=== PATIENT | female | born 1980 | race Caucasian/White ===

== ENCOUNTER 2018-06-10 14:04 | Outpatient (CLI) | payer BC, SELFPAY ==
[2018-06-10 14:38] LABS: Abs Immature Grans 0.05 k/cumm (0.0-0.09); Absolute Basophil Count 0.06 k/cumm (0.0-0.2); Absolute Lymphocyte Count 2.54 k/cumm (1.2-3.4); Absolute Monocyte Count 0.71 k/cumm (0.11-0.7); Basophils % 0.5; Eosinophils % 0.8; HGB 11.2 g/dL (12.0-15.5); Immature Grans % 0.4; Lymphocytes % 21.4; Mean Corp. HGB Concentration 32.9 g/dL (32.0-36.0); Mean Corpuscular Hemoglobin 27.7 pg (27.0-33.0); Mean Platelet Volume 8.8 fL (8.0-11.0); Neutrophils % 70.9; Platelet Count 344 x1000/uL (130-400); RBC 4.05 m/cumm (4.00-5.20); RBC Distribution Width 12.7 % (11.7-14.6); White Blood Cell Count 11.88 k/cumm (4.4-10.8)
[2018-06-10 14:42] LABS: Absolute Neutrophil Count 8.42 k/cumm (1.2-6.7)
[2018-06-10 15:32] LABS: TSH (W/Ref FT4) 3.53 uIU/mL (0.358-3.74)
[2018-06-11 10:40] LABS: Prolactin 10.1 ng/ml
== END 2018-06-10 14:24 ==
PROVIDERS: PCP Neuromusculoskeletal Medicine & OMM; Visit Provider Obstetrics & Gynecology
DX: N92.0 Excessive and frequent menstruation with regular cycle (principal)
CPT/HCPCS: 36415; 84146; 84443; 85025

== ENCOUNTER 2018-06-10 14:11 | Outpatient (REF) | payer BC, SELFPAY ==
--- NOTE | 2018-06-10 14:00 | PAPFT_PTH ---
PATIENT: CLAUDIA MCINTOSH LOC: [facility] U#:[id number] AGE/SX: 37/F ROOM: RE06/10/[address]: Magdalena Singleton MD : 1980 BED: DIS: 06/10/2018 SPEC #: [id number] RECD: 06/10/18 17:59 STATUS: KRISTINE REQ #: [id number] LOU: 06/10/18 14:[address]: Magdalena Singleton DEPT: [facility] Cytology RECD BY: Paty Orr ENTERED: 06/10/18 18:00 SP TYPE: PAPFT DUSTY DR: Cecil Rapp Tissues: 1 - CX/ENDOCX FOR PAP SMEARS Procedures: PAP THIN PREP/UVM Screening HPV DNA PROBE Comments: [id number]
== END 2018-06-10 14:31 ==
LOC: LBN 14:11
PROVIDERS: PCP Neuromusculoskeletal Medicine & OMM; Visit Provider Obstetrics & Gynecology
DX: Z12.4 Encounter for screening for malignant neoplasm of cervix (principal); Z11.51 Encounter for screening for human papillomavirus (HPV)
CPT/HCPCS: 88142; 87624

== ENCOUNTER 2018-06-19 00:09 | Outpatient (CLI) | payer BC, SELFPAY ==
--- NOTE | 2018-06-19 14:02 | DI.RAD_ITS ---
SYMPTOMS/DIAGNOSIS: MENORRHAGIA, N92.0 PELVIC ULTRASOUND: Pelvic ultrasound was performed transabdominally and transvaginally. Please see accompanying data sheet for measurements of the pelvic structures. There are a few Nabothian cysts of the cervix. The uterus is otherwise unremarkable in appearance with a 5 mm thick homogeneous endometrial stripe. The ovaries have a normal follicular appearance. No free fluid identified in the cul-de-sac. Limited scanning of the kidneys is unremarkable. CONCLUSION: Negative pelvic ultrasound.
== END 2018-06-19 00:29 ==
PROVIDERS: PCP Neuromusculoskeletal Medicine & OMM; Visit Provider Obstetrics & Gynecology
DX: N92.0 Excessive and frequent menstruation with regular cycle (principal)
CPT/HCPCS: 76830; 76856

== ENCOUNTER 2018-06-26 15:57 | Outpatient (REF) | payer BC, SELFPAY ==
--- NOTE | 2018-06-26 15:45 | ENDOMET_PTH ---
PATIENT: CLAUDIA MCINTOSH LOC: [facility] U#:[id number] AGE/SX: 37/F ROOM: RE06/26/[address]: Magdalena Singleton MD : 1980 BED: DIS: 06/26/2018 SPEC #: [id number] RECD: 06/26/18 17:50 STATUS: KRISTINE REQ #: [id number] LOU: 06/26/18 15:[address]: Magdalena Singleton DEPT: Surgical Specimen RECD BY: Paty Orr ENTERED: 06/26/18 17:51 SP TYPE: Endomet OTHR DR: Cecil Rapp Tissues: 1 - ENDOMETRIUM BX/LAUREL Procedures: GROSS AND MICRO LEVEL 4 Comments: [id number]
== END 2018-06-26 16:17 ==
LOC: LBN 15:57
PROVIDERS: PCP Neuromusculoskeletal Medicine & OMM; Visit Provider Obstetrics & Gynecology
DX: N84.0 Polyp of corpus uteri (principal); N92.0 Excessive and frequent menstruation with regular cycle; N85.00 Endometrial hyperplasia, unspecified
CPT/HCPCS: 88305